=== PATIENT | male | born 1990 | race Caucasian/White ===

== ENCOUNTER 2017-08-20 16:14 | Emergency (ER) | payer OTHER ==
[~2017-08-20] VITALS: Ht 185.4 cm; Wt 104.3 kg
[~2017-08-20 16:14] MED LIST: ANAPROX DS550 MG PO; CLARITIN-D 12 H1 TAB PO; CLINDAMYCIN HC300 MG PO; EPI EZ PEN0.5 MG/ML IM; FLONASE ALLERG9.9 ML NAS; HYDROCODONE BIT1 T11 PO; KEFLEX500 MG PO; PENICILLIN VK500 MG PO; PREDNISONE10 MG PO; Peridex 473 ML473 ML PO; ROBITUSSIN DM 105 ML PO; ULTRAM50 MG PO; VOLTAREN50 M1 PO; ZOFRAN ODT4 MG SL
[2017-08-20 17:55] VITALS: BP 116/80
[2017-08-20] MEDS ORDERED: PROAIR HFA8.5 GM INH (18:22)
[2017-08-20] MEDS ORDERED: PREDNISONE20 M1 PO (18:22)
== END 2017-08-20 18:32 | disposition home or self-care (01) ==
LOC: ED 16:14
DX: J06.9 Acute upper respiratory infection, unspecified (principal); R06.2 Wheezing; Z87.891 Personal history of nicotine dependence

== ENCOUNTER 2018-10-07 08:40 | Emergency (ER) | payer BC ==
[~2018-10-07 08:40] MED LIST changes: +PREDNISONE20 M1 PO; +PROAIR HFA8.5 GM INH
[2018-10-07 08:42] VITALS: BP 142/61
[2018-10-07] MEDS ORDERED: PREDNISONE20 M1 PO (10:20)
[2018-10-07] MEDS ORDERED: DOXYCYCLINE100 M3 PO (10:20)
[2018-10-07] MEDS ORDERED: TESSALON PERLE100 M1 PO (10:20)
[2018-10-07] MEDS ORDERED: PROVENTIL HFA6.7 GM INH (10:20)
== END 2018-10-07 11:05 | disposition home or self-care (01) ==
LOC: ED 08:40
DX: J40 Bronchitis, not specified as acute or chronic (principal)

== ENCOUNTER 2019-04-06 16:11 | Emergency (ER) | payer BC ==
[~2019-04-06] VITALS: Ht 185.4 cm; Wt 108.9 kg
[~2019-04-06 16:11] MED LIST changes: +DOXYCYCLINE100 M3 PO; +PROVENTIL HFA6.7 GM INH; +TESSALON PERLE100 M1 PO
[2019-04-06 16:12] VITALS: BP 119/87
[2019-04-06] MEDS ORDERED: Motrin,Rufen800 MG PO (16:19)
[2019-04-06] MEDS ORDERED: PENICILLIN-VK500 M1 PO (16:19)
== END 2019-04-06 16:24 | disposition home or self-care (01) ==
LOC: ED 16:11
DX: K08.89 Other specified disorders of teeth and supporting structures (principal); R22.0 Localized swelling, mass and lump, head; R21 Rash and other nonspecific skin eruption; K03.81 Cracked tooth

== ENCOUNTER 2019-07-22 04:01 | Emergency (ER) | payer SELFPAY ==
[~2019-07-22] VITALS: Ht 185.4 cm; Wt 113.4 kg
[2019-07-22 04:01] VITALS: BP 134/85
[~2019-07-22 04:01] MED LIST changes: +Motrin,Rufen800 MG PO; +PENICILLIN-VK500 M1 PO
[2019-07-22] MEDS ORDERED: PENICILLIN VK500 MG PO (04:30)
[2019-07-22] MEDS ORDERED: NAPROSYN EC375 MG PO (04:30)
== END 2019-07-22 04:44 | disposition home or self-care (01) ==
LOC: ED 04:01
DX: K04.7 Periapical abscess without sinus (principal); K02.9 Dental caries, unspecified; J45.909 Unspecified asthma, uncomplicated